=== PATIENT | female | born 1990 | race Caucasian/White ===

== ENCOUNTER → 2016-05-14 | Outpatient (CLI) | payer OTHER ==
[~2016-05-14] MED LIST: /ONDA4TA OR; ACET50TA OR; IBUP600T26 OR; PRENTAB66 PO
--- NOTE | 2016-05-15 02:13 | REP ---
Clinical: Acute left-sided back pain . Technique: AP, lateral, bilateral oblique, and coned-down views. Findings: Alignment is maintained. Straightening of normal lordosis may be secondary to positioning versus spasm. The vertebral bodies including transverse process and spinous processes are intact and normal. There is no evidence for acute fracture / compression injury or subluxation. No evidence for spondylolysis or spondylolisthesis. No significant degenerative change is noted. Impression: Normal lumbosacral spine radiograph series. Signed by Santy Leary MD 05/15/2016 02:05 A
== END ==
LOC: M LRY 15:00
PROVIDERS: ATTEND Family Medicine
DX: M54.5 Low back pain (principal)

== ENCOUNTER → 2017-11-08 | Outpatient (CLI) | payer OTHER | LOC: M LRY 09:21 | DX: M79.672 Pain in left foot (principal) | CPT/HCPCS: 73630 ==

== ENCOUNTER → 2018-08-05 | Outpatient (REF) | payer OTHER ==
[~2018-08-05] MED LIST changes: -/ONDA4TA OR; -ACET50TA OR; +MAPA500T17 OR; +ONDA-1 OR
[2018-08-05 20:13] LABS: ALBUMIN 4.6 GM/DL (3.2-5.2); ALT/SGPT 49 U/L (12-78); BASO # 0.1 10^3/uL (0.0-0.2); BASO % 0.9 % (0.0-1.0); BILIRUBIN,TOTAL 0.8 MG/DL (0.2-1.0); BLOOD UREA NITROGEN 13 MG/DL (7-18); CALCIUM LEVEL 8.9 MG/DL (8.5-10.1); CARBON DIOXIDE LEVEL 27 MEQ/L (21-32); CHLORIDE LEVEL 104 MEQ/L (98-107); CHOLESTEROL LEVEL 176 MG/DL (<200); EOS % 0.6 % (0.0-3.0); FREE T4 1.02 NG/DL (0.76-1.46); GLOMERULAR FILTRATION RATE > 60.0 (>60); GLUCOSE, FASTING 90 MG/DL (70-100); HDL CHOLESTEROL 115 MG/DL (>40); HEMATOCRIT 39.9 % (36.0-47.0); HEMOGLOBIN 13.5 g/dl (12.0-15.5); LDL CHOLESTEROL 53 MG/DL (<100); LYMPH # 1.6 10^3/uL (1.5-6.5); LYMPH % 24.4 % (24.0-44.0); MEAN CORPUSCULAR HEMOGLOBIN 31.5 pg (27.0-33.0); MEAN CORPUSCULAR HGB CONC 33.8 g/dl (32.0-36.5); MONO # 0.8 10^3/uL (0.0-0.8); MONO % 12.1 % (0.0-5.0); NEUTROPHILS # 3.9 10^3/uL (1.8-7.7); NEUTROPHILS % 61.8 % (36.0-66.0); NON-HDL-C 61 MG/DL; PLATELET COUNT, AUTOMATED 265 10^3/uL (150-450); POTASSIUM SERUM 4.3 MEQ/L (3.5-5.1); RED BLOOD COUNT 4.29 10^6/uL (4.00-5.40); SODIUM LEVEL 137 MEQ/L (136-145); TOTAL PROTEIN 7.1 GM/DL (6.4-8.2); TRIGLYCERIDES LEVEL 41 MG/DL (<150); WHITE BLOOD COUNT 6.4 10^3/uL (4.0-10.0)
[2018-08-05 20:16] LABS: TOTAL 25(OH) VITAMIN D 30.7 NG/ML (30.0-100.0)
[2018-08-05 20:39] LABS: HEMOGLOBIN A1c 4.7 %
== END ==
LOC: M LAB REF 19:17
PROVIDERS: ATTEND Nurse Practitioner Adult Health
DX: Z00.01 Encounter for general adult medical examination with abnormal findings (principal)